=== PATIENT | female | born 1950 | race Caucasian/White ===

== ENCOUNTER 2021-10-08 11:04 | Inpatient (IN) | payer OTHER ==
[~2021-10-08] VITALS: Ht 152.4 cm; Wt 54.4 kg
[2021-10-08 13:15] LABS: BASOPHILS % (AUTO) 0.4 % (0.0-5.0); EOSINOPHILS % (AUTO) 0.1 % (0.0-8.0); HEMATOCRIT 34.6 % (36-48); LYMPHOCYTES % (AUTO) 14.3 % (21.0-51.0); MEAN CORPUSCULAR HEMOGLOBIN 32.5 pg (27.0-33.0); MEAN CORPUSCULAR VOLUME 87.8 fL (79-99); MONOCYTES % (AUTO) 9.2 % (3.0-13.0); NEUTROPHILS % (AUTO) 75.7 % (40.0-77.0); PLATELET COUNT (AUTO) 261 K/uL (130-400); RED BLOOD CELL COUNT(AUTO) 3.94 MIL/uL (4.00-5.50); RED CELL DISTRIBUTION WIDTH 10.6 % (11.0-15.5); WHITE BLOOD COUNT (AUTO) 10.4 K/uL (4.8-10.8)
[2021-10-08 13:27] LABS: APPEARANCE,URINE Clear (CLEAR); BILIRUBIN,URINE Negative (NEGATIVE); COLOR,URINE Yellow (YELLOW); GLUCOSE, URINE (UA) Negative (NEGATIVE); KETONES,URINE Negative (NEGATIVE); LEUKOCYTE ESTERASE ,URINE Negative (NEGATIVE); NITRATE,URINE Negative (NEGATIVE); OCCULT BLOOD,URINE Negative (NEGATIVE); PH,URINE 7.5 (5.0-8.0); PROTEIN,URINE Negative (NEGATIVE); UROBILINOGEN,URINE 0.2 mg/dL (0.2-1.0)
[2021-10-08 13:30] LABS: ALBUMIN 3.9 g/dL (3.5-5.0); BILIRUBIN,TOTAL 0.6 mg/dL (0.2-1.0)
[2021-10-08 13:34] LABS: POTASSIUM 2.4 mmol/L (3.5-5.1)
[2021-10-08] MEDS ORDERED: POTASSIUM CHLORIDE 20MEQ/10ML 0 MEQ in 0.9%NACL 1000ML 1,000 ML IV SCH (14:00)
[2021-10-08] MEDS ORDERED: POTASSIUM CHLORIDE 10% ELIXIR 20 MEQ/15 ML UDCUP PO ONE (14:00)
[2021-10-08] MEDS ORDERED: 0.9%NACL 1000ML 1,000 ML IV ONE (14:00)
[2021-10-08] MEDS: NS-20 MEQ KCL 1000ML 1,000 ML IV SCH (14:34)
[2021-10-08] MEDS ORDERED: LIDOCAINE HCL-MPF 1% 2ML VIAL IV PRN (18:00)
[2021-10-08] MEDS ORDERED: POTASSIUM CHLORIDE 10% ELIXIR 20 MEQ/15 ML UDCUP PO PRN (18:00)
[2021-10-08] MEDS ORDERED: ONDANSETRON 4MG INJ IV PRN (18:00)
[2021-10-08] MEDS ORDERED: POTASSIUM CHLORIDE 20MEQ/100ML 100 ML IV PRN (18:00)
[2021-10-08] MEDS ORDERED: ACETAMINOPHEN 325 MG TAB PO PRN ×2 (18:00)
[2021-10-08] MEDS ORDERED: 0.9%NACL 1000ML 1,000 ML IV SCH (18:00)
[2021-10-08] MEDS ORDERED: METOPROLOL TARTRATE 1 MG/ML 5ML VIAL IV PRN (18:00)
[2021-10-08 19:32] VITALS: BP 138/81
[2021-10-08] MEDS ORDERED: MELO-108 PO (20:24)
[2021-10-08] MEDS ORDERED: OXYB5TAB15 PO (20:24)
[2021-10-08] MEDS ORDERED: ATOR20TA65 PO (20:24)
[2021-10-08] MEDS ORDERED: LOSA25TA41 PO (20:24)
[2021-10-08] MEDS ORDERED: CYCL5TAB PO (20:24)
[2021-10-08] MEDS: MAGNESIUM 2GM PREMIX 50ML 50 ML IV SCH (23:26)
[2021-10-09] VITALS (7 sets, daily range): BP systolic 125–146; BP diastolic 64–81
[2021-10-09] MEDS: NS-20 MEQ KCL 1000ML 1,000 ML IV SCH ×2 (00:57→20:00)
[2021-10-09] MEDS ORDERED: ATOR10TA69 PO (01:13)
[2021-10-09] MEDS ORDERED: LOSA1TAB54 PO (01:13)
[2021-10-09] MEDS ORDERED: OXYB-66 PO (01:13)
[2021-10-09 04:38] LABS: HEMATOCRIT 32.9 % (36-48); MEAN CORPUSCULAR HEMOGLOBIN 32.5 pg (27.0-33.0); MEAN CORPUSCULAR HGB CONC 35.9 g/dL (32.0-36.0); MEAN CORPUSCULAR VOLUME 90.6 fL (79-99); RED BLOOD CELL COUNT(AUTO) 3.63 MIL/uL (4.00-5.50); RED CELL DISTRIBUTION WIDTH 10.9 % (11.0-15.5); WHITE BLOOD COUNT (AUTO) 8.8 K/uL (4.8-10.8)
[2021-10-09 05:02] LABS: CREATININE 0.8 mg/dL (0.5-1.5)
[2021-10-09 05:10] LABS: POTASSIUM 2.9 mmol/L (3.5-5.1)
[2021-10-09] MEDS: KCL 20 MEQ ERTAB PO PRN (05:48)
[2021-10-09] MEDS ORDERED: POTASSIUM CHLORIDE 10% ELIXIR 20 MEQ/15 ML UDCUP PO SCH (08:00)
[2021-10-09] MEDS: ENOXAPARIN SODIUM 40 MG/0.4 ML SYRINGE SQ SCH (09:06)
[2021-10-09] MEDS: PANTOPRAZOLE 40 MG/VIAL IVP SCH (09:06)
[2021-10-09 12:58] LABS: CREATININE 0.9 mg/dL (0.5-1.5); POTASSIUM 4.4 mmol/L (3.5-5.1)
[2021-10-10 03:04] VITALS: BP 148/84
[2021-10-10 05:28] LABS: HEMATOCRIT 33.3 % (36-48); MEAN CORPUSCULAR HEMOGLOBIN 32.3 pg (27.0-33.0); MEAN CORPUSCULAR HGB CONC 35.1 g/dL (32.0-36.0); RED BLOOD CELL COUNT(AUTO) 3.62 MIL/uL (4.00-5.50); RED CELL DISTRIBUTION WIDTH 11.2 % (11.0-15.5); WHITE BLOOD COUNT (AUTO) 8.7 K/uL (4.8-10.8)
[2021-10-10 05:43] LABS: CREATININE 0.8 mg/dL (0.5-1.5); POTASSIUM 3.6 mmol/L (3.5-5.1)
[2021-10-10 07:42] VITALS: BP 159/81
[2021-10-10] MEDS ORDERED: LOSARTAN/HYDROCHLOROTHIAZIDE 50-12.5MG TABLET PO SCH (09:00)
[2021-10-10] MEDS ORDERED: ATORVASTATIN 10 MG TABLET PO SCH (09:00)
[2021-10-10] MEDS: PANTOPRAZOLE 40 MG/VIAL IVP SCH (09:15)
[2021-10-10] MEDS: ENOXAPARIN SODIUM 40 MG/0.4 ML SYRINGE SQ SCH (09:16)
[2021-10-10] MEDS: KCL 20 MEQ ERTAB PO PRN (09:16)
[2021-10-10] MEDS: MAGNESIUM 2GM PREMIX 50ML 50 ML IV SCH (09:25)
[2021-10-10] MEDS ORDERED: LOSA100T58 PO (09:27)
[2021-10-10] MEDS ORDERED: SPIR25TA6 PO (09:27)
[2021-10-10 10:50] VITALS: BP 137/74
== END 2021-10-10 14:45 | disposition home or self-care (01) | DRG 641 ==
LOC: EDH 11:04 → EDHIP 17:37 → 3CH 19:30
PROVIDERS: ADMIT Hospitalist; ATTEND Hospitalist
DX: E86.0 Dehydration (principal); E78.00 Pure hypercholesterolemia, unspecified; E87.1 Hypo-osmolality and hyponatremia; E87.6 Hypokalemia; Z20.822 Contact with and (suspected) exposure to COVID-19; I10 Essential (primary) hypertension; Z83.3 Family history of diabetes mellitus; E86.1 Hypovolemia; E83.42 Hypomagnesemia; Z90.49 Acquired absence of other specified parts of digestive tract
CPT/HCPCS: 36415; 71045; 80048; 80053; 81003; 82150; 83630; 83690; 83735; 84484; 85025; 85027; 87046; 87635; 93005; 99291; C9113; G0378; J1650; J3475; J3480; J3490; J7030